=== PATIENT | female | born 1950 | race Caucasian/White ===

== ENCOUNTER 2016-09-11 06:10 | Inpatient (IN) | payer OTHER ==
[2016-08-03 13:41] VITALS: BMI 35.0
--- NOTE | 2016-08-03 14:18 | PAT Medication Instructions ---
Service Date Aug 03, 2016. Current Home Medication List Albuterol Hfa (Ventolin Hfa), 2 PUFFS INH QID PRN for RN Aspirin Enteric Coated (Ecotrin Or Generic *), 81 MG PO Q2D Calcium Carbonate (Tums), 2 TAB PO PRN Calcium/Vitamin D (Caltrate 600 Plus *), 1 TAB PO QAM Diltiazem Hcl Ext Rel (Tiazac), 300 MG PO QAM Fluticasone Propionate (Nasal) (Flonase Allergy Relief), 2 SPRAYS MARTI PRN Furosemide (Lasix), 20 MG PO QAM Gabapentin (Neurontin), 300 MG PO BID Montelukast Sodium (Montelukast Sodium), 1 TAB PO QAM Multivitamin (Multivitamin), 1 TAB PO QAM Potassium Chloride (Micro-K Ext Rel), 10 MEQ PO QAM Tramadol (Ultram), 25-50 MG PO TID Triamcinolone Acet 0.1% (Aristocort 0.1%), 1 DOSE TOP PRN Medication Instructions For Your Scheduled Surgery - Hold the following medications 24 hours prior to surgery: Triamcinolone Acet 0.1% (Aristocort 0.1%), 1 DOSE TOP PRN - Hold the following medications the morning of surgery: Multivitamin (Multivitamin), 1 TAB PO QAM Potassium Chloride (Micro-K Ext Rel), 10 MEQ PO QAM Furosemide (Lasix), 20 MG PO QAM Calcium Carbonate (Tums), 2 TAB PO PRN Calcium/Vitamin D (Caltrate 600 Plus *), 1 TAB PO QAM - Take the following medications the morning of surgery with a sip of water: Tramadol (Ultram), 25-50 MG PO TID (can take up to four hours prior to surgery if needed) Montelukast Sodium (Montelukast Sodium), 1 TAB PO QAM Gabapentin (Neurontin), 300 MG PO BID (if needed) Fluticasone Propionate (Nasal) (Flonase Allergy Relief), 2 SPRAYS MARTI PRN ( if needed) Diltiazem Hcl Ext Rel (Tiazac), 300 MG PO QAM Aspirin Enteric Coated (Ecotrin Or Generic *), 81 MG PO Q2D Albuterol Hfa (Ventolin Hfa), 2 PUFFS INH QID PRN for RN (bring with you to hospital on day of surgery) - Take the following medications as scheduled the night before surgery: Tramadol (Ultram), 25-50 MG PO TID Gabapentin (Neurontin), 300 MG PO BID Fluticasone Propionate (Nasal) (Flonase Allergy Relief), 2 SPRAYS MARTI PRN Calcium Carbonate (Tums), 2 TAB PO PRN Albuterol Hfa (Ventolin Hfa), 2 PUFFS INH QID PRN for RN If you have any questions please call us at [phone] or [phone] ( [place]) or [phone]
[2016-08-03 14:59] LABS: BASO % 0.5 %; BASO ABS # 0.04 K/uL (0-0.2); COMPLETE YES; EOS % 1.3 %; IG% 0.1 %; LYMPH % 35.5 %; LYMPH ABS # 2.82 K/uL (1.2-3.4); MEAN CELL VOLUME 93.1 fL (80-100); MEAN CORPUSCULAR HEMOGLOBIN 31.5 pg (25-34); MEAN CORPUSCULAR HGB CONC 33.8 g/dl (32-36); MEAN PLATELET VOLUME 10.2 fL (7.4-10.4); MONO % 9.4 %; NEUT % 53.2 %; PLATELET COUNT 331 K/uL (130-400); RED BLOOD COUNT 4.19 M/uL (4.2-5.4); WHITE BLOOD COUNT 7.94 K/uL (4.8-10.8)
[2016-08-03 15:11] LABS: PARTIAL THROMBOPLASTIN RATIO 1.1; PROTHROMBIN TIME (PATIENT) 10.3 SECONDS (9.0-12.0)
[2016-08-03 15:32] LABS: BUN/CREATININE RATIO 16.4 (10-20); CALCIUM 9.5 mg/dl (8.5-10.1); CREATININE 0.73 mg/dl (0.60-1.20); POTASSIUM 3.4 mmol/L (3.5-5.1)
--- NOTE | 2016-08-03 15:56 | DIAGNOSTIC IMAGING REPORT ---
CHEST PREADMISSION(PA/LAT) CLINICAL HISTORY: Preoperative chest COMPARISON STUDY: 07/02/2010 FINDINGS: The cardiac and mediastinal contours are normal. There is no evidence of focal pulmonary consolidation. There is no evidence of failure. No pleural effusions are visualized.[ IMPRESSION: No active disease in the chest. Electronically signed by: Edin Peoples M.D. 08/03/2016 3:55 PM
[2016-08-04 06:51] LABS: ESTIMATED AVERAGE GLUCOSE 108 mg/dl; HA1C FLAG Normal (Normal)
--- NOTE | 2016-09-06 22:34 | HISTORY & PHYSICAL EXAMINATION ---
DATE OF ADMISSION: 09/11/2016 PREOPERATIVE HISTORY AND PHYSICAL EXAMINATION SUBJECTIVE CHIEF COMPLAINT: Left knee pain. HISTORY OF PRESENT ILLNESS: The patient is a 65-year-old female who has had left knee pain for some time now. It has been worsening over the past few years. She says that the problem has been getting worse. The pain is described as an achy, sharp feeling. She has tried anti-inflammatories, physical therapy and cortisone and visco with no relief. She would like to proceed with a left total knee arthroplasty. PAST MEDICAL HISTORY: Hypertension. PAST SURGICAL HISTORY: Lower back surgery. SOCIAL HISTORY: She denies alcohol use. She denies smoking or tobacco product use. She denies IV drug use or illegal drug use. 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 FAMILY HISTORY: Mom has a history of heart attacks. MEDICATIONS: Gabapentin 300 mg twice a day, montelukast 10 mg tab daily, Diltazem 300 mg daily, furosemide 20 mg daily, Ventolin p.r.n, Flonase p.r.n., aspirin 81 mg every other day, calcium 60 mg, vitamin D3 at 800 units. ALLERGIES: SULFA DRUGS. REVIEW OF SYSTEMS: She denies fevers, chills, headaches, weight loss, double vision, blurry vision, sore throat, hearing loss, tremors, dizziness, numbness, tingling, tired, thirsty, hot and cold intolerance, abdominal pain, nausea, vomiting, diarrhea, heartburn, chest pain into the legs or feet, frequency going to the bathroom, pain or burning with urination, incontinence, wheezing, cough, shortness of breath, depression, thoughts to harm herself or harm others, nervousness and anxiousness. She is positive for joint pain, stiffness and swelling of the left knee. OBJECTIVE: GENERAL APPEARANCE: The patient is a 65-year-old female sitting in no acute distress. Well dressed, well nourished. She is awake, alert and oriented x3. VITAL SIGNS: She is 5 feet 5 inches, 210 pounds, blood pressure 148/78. HEENT: Extraocular movements are intact, PERRLA, mucosa is moist. No septal deviation. NECK: Supple, no lymphadenopathy, no JVD, no thyromegaly. HEART: Regular rate and rhythm. No murmurs or gallops. LUNGS: Clear to auscultation. No wheezing or rhonchi. ABDOMEN: Soft, nontender, nondistended. Normal bowel sounds, no hepatosplenomegaly. EXTREMITIES: Paying particular attention to the left knee, she is able to actively flex to 90 degrees, actively extend to 0 degrees. She is having lateral knee pain on palpation. NEUROLOGIC: Cranial nerves II-XII are intact. Pulses were compared bilaterally and were equal. IMAGING: X-ray of the left knee shows [id number] lateral compartment with osteophyte formation on the lateral femoral condyle and lateral tibial plateau, subchondral sclerosis in the lateral compartment and moderate osteoarthritic change in the medial and patellofemoral components. IMPRESSION: Severe end stage left knee osteoarthritis. PLAN: The patient is scheduled for a left total knee arthroplasty. She has failed conservative therapies including cortisone and viscosupplementation, anti-inflammatories and physical therapy. She notes that this inhibits her activities of daily living, and she wishes to proceed with a left total knee arthroplasty. Risks and benefits to surgery were discussed and included but not limited to blood clot, nerve damage, blood vessel damage, infection, DVT, failure to relieve all symptoms, revision surgeries and anesthesia risks. The patient understands these risks and wishes to proceed. All questions were answered to her satisfaction. She would like to go to [facility] for her physical rehabilitation after the surgery. BRANDEE
[~2016-09-11] VITALS: Ht 165.1 cm; Wt 95.8 kg
[2016-09-11] VITALS (8 sets, daily range): BP systolic 92–163; BP diastolic 57–87; PULSE 58–89; TEMP 36.4–36.8; O2SAT 93–98; Ht 165.1 cm; Wt 95.8 kg
[~2016-09-11 06:10] MED LIST: ACETAMINOPHEN 500 MG TAB PO SCH; ASPEC81 PO; CALC500C3 PO; CEFAZOLIN 2000 MG/60 ML D5W 60 ML IV SCH; CLTP PO; CeleBREX 200 MG CAP PO SCH; DEXAMETHASONE 4 MG TAB PO SCH; DILT-117 PO; FAMOTIDINE 20 MG TAB PO SCH; FLUT0.15 NAE; FURO-85 PO; GABA-113 PO; GABAPENTIN 300 MG CAP PO SCH; LACTATED RINGER'S 1000ML 1,000 ML IV SCH; LACTATED RINGER'S 1000ML 500 ML IV ONE; LACTATED RINGER'S 1000ML IV SCH; METOCLOPRAMIDE HCL 10 MG TAB PO SCH; MONT1TAB5 PO; MULT-506 PO; POTA10CA28 PO; ROPIVACAINE 5MG/ML 30 ML 150 MG, BUPIVACAINE/EPINEPHR 0.5% MPF 30 ML, KETOROLAC TROMETH... INFIL SCH; TRAM-10 PO; TRIA0.1C20 TOP; VNTHFA/IN INH
--- NOTE | 2016-09-11 06:52 | History & Physical Bridge Note ---
H&P Re-Evaluation Bridge Note: I have examined the patient, reviewed the History & Physical and in the interval since the performance of the History & Physical I have noted the following changes of clinical significance: No changes noted
[2016-09-11] MEDS ORDERED: BUPIVACAINE/EPINEPHRINE 0.25% 1:200,000 30 ML VIAL ONE (07:09)
[2016-09-11] MEDS ORDERED: BUPIVACAINE 0.5 % 5 MG/1 ML PF 10ML VIAL ONE (07:09)
[2016-09-11] MEDS ORDERED: DEXAMETHASONE SOD INJ 4 MG/ML VIAL ONE ×2 (07:10→08:31)
[2016-09-11] MEDS: TRANEXAMIC ACID INJ 1,000 MG in SODIUM CHLORIDE 0.9% 100ML 100 ML IV SCH ×2 (08:20→14:04)
[2016-09-11] MEDS ORDERED: LIDOCAINE HCL 2% 2 ML VIAL (20MG/ML) ONE (08:31)
[2016-09-11] MEDS ORDERED: ONDANSETRON INJ 2 MG/ML 2 ML VIAL ONE (08:31)
[2016-09-11] MEDS ORDERED: PROPOFOL IV EMULSION 10 MG/ML 20 ML VIAL IV ONE (08:31)
[2016-09-11] MEDS ORDERED: MIDAZOLAM HCL 1 MG/ML 2ML VIAL ONE ×2 (08:32→10:42)
[2016-09-11] MEDS ORDERED: FENTANYL CITRATE INJ 50 MCG/1 ML 2 ML VIAL ONE (08:32)
[2016-09-11] MEDS ORDERED: FENTANYL CITRATE INJ 50 MCG/1 ML 2 ML VIAL IV PRN (09:30)
[2016-09-11] MEDS ORDERED: ATROPINE SULFATE 0.1 MG/ML 5ML SYR IV PRN (09:30)
[2016-09-11] MEDS ORDERED: EpHEDrine SULFATE INJ 50 MG/ML AMP IV PRN (09:30)
[2016-09-11] MEDS ORDERED: ONDANSETRON INJ 2 MG/ML 2 ML VIAL IV PRN ×2 (09:30→12:00)
[2016-09-11] MEDS ORDERED: ORTHO JOINT ANESTHETIC ONE (09:30)
[2016-09-11] MEDS ORDERED: BACITRACIN 50000 UNIT VIAL IR ONE (11:07)
[2016-09-11] MEDS ORDERED: POVIDONE-IODINE OP SOLN 30 ML BTL TOP ONE (11:07)
--- NOTE | 2016-09-11 11:12 | [facility] Post Operative Brief Note ---
Immediate Operative Summary Operative Date Sep 11, 2016. Pre-Operative Diagnosis Severe End-Stage Osteoarthritis of Left Knee Post-Operative Diagnosis Same as preoperative Procedure(s) Performed Left Total Knee Arthroplasty, Cemented Surgeon Dr. Torres Dunne Collar Baster Jumpbasting Surgeon(s) Alan Davis PA-C, Jay Espinoza PA-C Estimated Blood Loss 20ml Findings above Specimens A.) Left Knee Bone and Tissue Fragments Drains 2 hemovac Anesthesia spinal, adductor Complication(s) None Disposition Recovery Room / PACU
--- NOTE | 2016-09-11 11:37 | OPERATIVE REPORT ---
DATE OF OPERATION: 09/11/2016 PREOPERATIVE DIAGNOSIS: Left knee degenerative joint disease. POSTOPERATIVE DIAGNOSIS: Same. PROCEDURE: Left total knee arthroplasty. SURGEON: Dr. Dunne. ASSISTANTS: Alan Davis PA-C and Jay Espinoza PA-C, who were necessary for assistance of the procedure with positioning, prepping, draping, retraction and closure. ANESTHESIA: Spinal with adductor canal block. SPECIMEN: Bone and tissue. DRAINS: Two Hemovacs. COMPLICATIONS: None. ESTIMATED BLOOD LOSS: 20 mL. IMPLANTS: Mclain \T\ Nephew Journey version 2, femur 5, tibia 4, poly 11, patella 29 oval. INDICATIONS: The patient is a 65-year-old female with longstanding degenerative joint disease of the left knee. She has failed conservative measures including injection, anti-inflammatories and rehabilitation. X-rays demonstrate she is bone on bone lateral compartment. Failing conservative measures, she wished to proceed with left total knee arthroplasty. Risks, benefits, and alternatives of surgery including but not limited to infection, DVT, pain, stiffness, need for urgent surgery, failure to relieve all symptoms, damage to blood vessels, damage to nerves, risks of anesthesia discussed with the patient and she wished to proceed. DESCRIPTION OF PROCEDURE: The patient was identified, laterality was confirmed and marked. She received a preoperative antibiotic as well as a spinal anesthetic and adductor canal block. A well-padded tourniquet was placed on the thigh and limb was prepped and draped in usual sterile manner with ChloraPrep. Limb was exsanguinated and tourniquet was inflated. I made a longitudinal incision in anterior aspect of the shoulder, sharply incising through the skin, utilizing Bovie electrocautery to achieve hemostasis. I made a medial parapatellar arthrotomy, mobilizing the patella laterally. I excised the anterior horns of medial and lateral meniscus. I then pinned into place the patient matched distal femoral cutting guide, I made my distal femoral resection and then pinned into place the size 5 5-in-1 cutting guide. I made my anterior, posterior and chamfer cuts. I then removed the remaining portion of the menisci and then pinned into place my tibial cutting guide, made my tibial resection, sized for a size 4 tibia and then cut for the post. I placed the trial femur into place, sequentially trialed up to a size 11 poly. We had good range of motion, good soft tissue balancing with an 11. I then prepared the patella with a freehand cut, sized and drilled for a 29 oval. The tibial component was a little bit internally rotated, we removed the trial components, repositioned the tibial component, recut for the post, checked it with an alignment gomez, had much better alignment with some additional external rotation to the tibial component. We retrialed the same poly and patella, continued to have good tracking of the patella and had good soft tissue balance, good stability with the 11 mm poly. All the trial components were removed. Wound was thoroughly irrigated. Deep tissues were anesthetized with Orthomix solution and then the definitive components were cemented with Simplex HV with gentamicin cement. This was Mclain \T\ Nephew Journey version 2, femur 5, tibia 4, poly 11, patella 29 oval. A Betadine soak was performed. Deep drain was placed. Arthrotomy was closed with interrupted #1 Vicryl sutures, subcutaneous tissue with interrupted 2-0 Vicryl suture and skin with alberto. Sterile dressing was applied. All needle and sponge counts were correct at the end of the procedure. The patient was transferred to the PACU in stable condition without apparent complication. I attest to the content of the Intraoperative Record and any orders documented therein. Any exceptio ns are noted below.
[2016-09-11] MEDS ORDERED: ALUMINUM/MAGNESIUM/SIMETH (MAALOX MAX) 30 ML UDC PO PRN (12:00)
[2016-09-11] MEDS ORDERED: MoRPHine SULFATE 2 MG/ML CARP IV PRN (12:00)
[2016-09-11] MEDS ORDERED: MAGNESIUM HYDROXIDE SUSP 30 ML UDC PO PRN (12:00)
[2016-09-11] MEDS ORDERED: CALCIUM CARBONATE 500 MG CHEWABLE PO PRN (12:00)
[2016-09-11] MEDS ORDERED: BISACODYL 10 MG SUPP PR PRN (12:00)
[2016-09-11] MEDS ORDERED: ALBUTEROL HFA 8 GM INHALER INH PRN (12:00)
[2016-09-11] MEDS ORDERED: SOD PHOSPHATE/SOD BIPHOSPHATE ENEMA 132 ML BTL PR PRN (12:00)
[2016-09-11] MEDS ORDERED: FLUTICASONE PROPIONATE NA SPR 16 GM BTL NAE PRN (12:00)
[2016-09-11] MEDS ORDERED: ZOLPIDEM TARTRATE 5 MG TAB PO PRN (12:00)
--- NOTE | 2016-09-11 12:35 | DIAGNOSTIC IMAGING REPORT ---
LEFT KNEE 1 OR 2 VIEWS ROUTINE CLINICAL HISTORY: Degenerative arthritis. Postop study. COMPARISON: None. DISCUSSION: There are postsurgical changes of a total left knee arthroplasty and patellar resurfacing. Overlying skin alberto and surgical drains are evident. There is air in soft tissues consistent with recent surgery. The femoral and tibial components appear well seated. IMPRESSION: Postsurgical changes of a total left knee arthroplasty. Electronically signed by: Edin Peoples M.D. 09/11/2016 12:34 PM Dictated Date/Time: 09/11/2016 12:33 PM
--- NOTE | 2016-09-11 12:37 | Anesthesiology Progress Note ---
Anesthesia Post Op Note Date & Time Sep 11, 2016 at 12:37 Vital Signs Pain Intensity: 0 Vital Signs Past 12 Hours Date Time Temp Pulse Resp B/P Pulse Ox O2 Delivery O2 Flow Rate FiO2 09/11/16 12:28 87 18 118/68 96 09/11/16 12:28 87 18 09/11/16 12:23 85 21 122/85 97 09/11/16 12:23 85 21 09/11/16 12:18 85 18 123/70 96 09/11/16 12:18 84 18 09/11/16 12:13 91 18 122/71 98 09/11/16 12:13 92 18 09/11/16 12:08 88 19 09/11/16 12:08 89 19 114/68 99 09/11/16 12:03 89 18 113/64 100 09/11/16 12:03 37.0 93 16 111/57 96 Mask 10 09/11/16 12:03 89 18 09/11/16 06:45 36.7 89 20 163/87 97 Room Air Notes Mental Status: alert / awake / arousable, participated in evaluation Pt Amnestic to Procedure: Yes Nausea / Vomiting: adequately controlled Pain: adequately controlled Airway Patency, RR, SpO2: stable & adequate BP & HR: stable & adequate Hydration State: stable & adequate Neuraxial Anesthesia: was administered, sensory block is resolving Anesthetic Complications: no major complications apparent
[2016-09-11] MEDS: D5W AND 1/2NSS + 20MEQ KCL 1,000 ML IV SCH (14:04)
[2016-09-11] MEDS: ACETAMINOPHEN 500 MG TAB PO SCH ×2 (14:12→21:46)
[2016-09-11] MEDS: CEFAZOLIN IV 2,000 MG in DEXTROSE 5% 50ML 50 ML IV SCH (18:15)
[2016-09-11] MEDS: FERROUS GLUCONATE 324 MG TAB PO SCH (19:00)
[2016-09-11] MEDS: OXYCODONE HCL IR 5 MG TAB (IMMEDIATE RELEASE) PO PRN (19:01)
[2016-09-11] MEDS: DOCUSATE SODIUM 100 MG CAP PO SCH (20:36)
[2016-09-11] MEDS: ASPIRIN 81 MG ECTAB PO SCH (20:36)
[2016-09-11] MEDS: SENNA 8.6 MG TAB PO SCH (20:36)
[2016-09-11] MEDS: OXYCODONE HCL 10 MG TABCR (OXYCONTIN) PO SCH (20:36)
[2016-09-11] MEDS: GABAPENTIN 300 MG CAP PO SCH (20:36)
[2016-09-12] VITALS (7 sets, daily range): BP systolic 95–156; BP diastolic 61–94; PULSE 50–75; TEMP 36.6–36.9; O2SAT 96–100
[2016-09-12] MEDS: D5W AND 1/2NSS + 20MEQ KCL 1,000 ML IV SCH ×2 (00:13→08:38)
[2016-09-12] MEDS: OXYCODONE HCL IR 5 MG TAB (IMMEDIATE RELEASE) PO PRN ×2 (00:17→05:23)
[2016-09-12] MEDS: CEFAZOLIN IV 2,000 MG in DEXTROSE 5% 50ML 50 ML IV SCH (01:40)
[2016-09-12] MEDS: ACETAMINOPHEN 500 MG TAB PO SCH ×3 (05:20→21:40)
[2016-09-12 06:28] LABS: HEMATOCRIT 34.9 % (37-47); MEAN CELL VOLUME 93.1 fL (80-100); MEAN CORPUSCULAR HEMOGLOBIN 31.7 pg (25-34); MEAN CORPUSCULAR HGB CONC 34.1 g/dl (32-36); MEAN PLATELET VOLUME 10.7 fL (7.4-10.4); PLATELET COUNT 311 K/uL (130-400); RED BLOOD COUNT 3.75 M/uL (4.2-5.4); WHITE BLOOD COUNT 21.22 K/uL (4.8-10.8)
[2016-09-12 06:57] LABS: BUN/CREATININE RATIO 19.5 (10-20); CALCIUM 8.7 mg/dl (8.5-10.1); CREATININE 0.73 mg/dl (0.60-1.20); POTASSIUM 4.2 mmol/L (3.5-5.1)
[2016-09-12] MEDS: CALCIUM 600MG + VIT D 400 IU TAB PO SCH (08:28)
[2016-09-12] MEDS: ASPIRIN 81 MG ECTAB PO SCH ×2 (08:28→21:40)
[2016-09-12] MEDS: DILTIAZEM HCL 300 MG CAPCR PO SCH (08:28)
[2016-09-12] MEDS: DOCUSATE SODIUM 100 MG CAP PO SCH ×2 (08:28→21:40)
[2016-09-12] MEDS: POTASSIUM CHLORIDE 10 MEQ TABCR PO SCH (08:29)
[2016-09-12] MEDS: MULTIVITAMIN TAB PO SCH (08:29)
[2016-09-12] MEDS: FUROSEMIDE 20 MG TAB PO SCH (08:29)
[2016-09-12] MEDS: MONTELUKAST SOD 10 MG TAB PO SCH (08:30)
[2016-09-12] MEDS: PANTOprazole SOD 40 MG TAB PO SCH (08:30)
[2016-09-12] MEDS: GABAPENTIN 300 MG CAP PO SCH ×2 (08:30→21:41)
[2016-09-12] MEDS: OXYCODONE HCL 10 MG TABCR (OXYCONTIN) PO SCH ×2 (08:38→21:45)
[2016-09-12] MEDS ORDERED: MULTIVITAMIN TAB PO SCH (09:00)
[2016-09-12] MEDS: FERROUS GLUCONATE 324 MG TAB PO SCH ×3 (09:24→17:50)
--- NOTE | 2016-09-12 13:06 | Orthopedic Progress Note ---
Orthopedic Progress Note Date of Service Sep 12, 2016. Subjective Post OP Day: 1 Reports: feeling well, pain controlled w PO medications, Denies: SOB, calf pain , chest pain, light headedness, nausea / vomiting Objective calves soft nontender, N/V intact, capillary refill less than 2 sec., dressing C /D/I, A&O x3, toes mobile, hemovac drainage Date Time Temp Pulse Resp B/P Pulse Ox O2 Delivery O2 Flow Rate FiO2 09/12/16 11:56 36.6 70 16 156/94 100 Room Air 09/12/16 09:34 97 Room Air 09/12/16 09:30 75 98 09/12/16 08:13 Room Air 09/12/16 08:00 36.6 60 18 142/80 97 Room Air 09/12/16 02:55 36.7 50 16 95/61 96 Room Air 09/12/16 00:15 Room Air 09/11/16 23:15 36.8 58 18 92/57 93 Room Air 09/11/16 19:54 36.4 74 18 137/85 96 Room Air 09/11/16 15:55 36.4 82 16 96/61 98 Nasal Cannula 2.0 09/11/16 15:09 36.5 73 16 115/68 97 Nasal Cannula 2.0 09/11/16 15:00 Nasal Cannula 2.0 09/11/16 14:00 36.7 85 16 135/77 96 Nasal Cannula 2.0 09/11/16 14:00 83 16 124/72 98 2.0 09/11/16 13:30 36.7 76 16 123/80 98 Nasal Cannula 2.0 Laboratory Results 24 Hours: Test 09/12/16 05:29 Hematocrit 34.9 % Hemoglobin 11.9 g/dL Assessment & Plan Assessment: POD#1 Left TKA Inhouse Planning Pain Management: Oxycontin, PO Tylenol, Oxy IR DVT Prophylaxis: TEDs, SCDs, ASA Discharge Planning Discharge Planning: rehab hospital Discharge Planning Notes: Plan for discharge to [facility] when approved.
[2016-09-12] MEDS: SENNA 8.6 MG TAB PO SCH (21:41)
[2016-09-13] MEDS: ACETAMINOPHEN 500 MG TAB PO SCH ×3 (05:25→21:39)
[2016-09-13] MEDS: OXYCODONE HCL IR 5 MG TAB (IMMEDIATE RELEASE) PO PRN ×2 (05:57→12:34)
[2016-09-13 06:02] VITALS: BP 129/81; PULSE 72; TEMP 36.8; O2SAT 98
--- NOTE | 2016-09-13 08:32 | Orthopedic Progress Note ---
Orthopedic Progress Note Date of Service Sep 13, 2016. Subjective Post OP Day: 2 Reports: feeling well, pain controlled w PO medications, Denies: SOB, calf pain , chest pain, light headedness, nausea / vomiting Objective calves soft nontender, N/V intact, capillary refill less than 2 sec., dressing C /D/I, A&O x3, toes mobile Date Time Temp Pulse Resp B/P Pulse Ox O2 Delivery O2 Flow Rate FiO2 09/13/16 08:05 Room Air 09/13/16 06:02 36.8 72 17 129/81 98 Room Air 09/12/16 22:58 36.9 63 18 110/71 98 Room Air 09/12/16 20:05 Room Air 09/12/16 16:10 Room Air 09/12/16 15:34 36.6 70 16 120/72 98 Room Air 09/12/16 11:56 36.6 70 16 156/94 100 Room Air 09/12/16 09:34 97 Room Air 09/12/16 09:30 75 98 Assessment & Plan Assessment: POD#2 Left TKA Inhouse Planning Pain Management: Oxycontin, PO Tylenol, Oxy IR DVT Prophylaxis: TEDs, SCDs, ASA Discharge Planning Discharge Planning: rehab hospital Discharge Planning Notes: Plan for discharge to [facility] when approved or [facility]. Most likely wednesday
[2016-09-13] MEDS: FERROUS GLUCONATE 324 MG TAB PO SCH ×3 (08:33→17:54)
[2016-09-13] MEDS: DILTIAZEM HCL 300 MG CAPCR PO SCH (08:34)
[2016-09-13] MEDS: DOCUSATE SODIUM 100 MG CAP PO SCH ×2 (08:34→20:48)
[2016-09-13] MEDS: CALCIUM 600MG + VIT D 400 IU TAB PO SCH (08:34)
[2016-09-13] MEDS: MONTELUKAST SOD 10 MG TAB PO SCH (08:35)
[2016-09-13] MEDS: FUROSEMIDE 20 MG TAB PO SCH (08:35)
[2016-09-13] MEDS: ASPIRIN 81 MG ECTAB PO SCH ×2 (08:35→20:48)
[2016-09-13] MEDS: OXYCODONE HCL 10 MG TABCR (OXYCONTIN) PO SCH ×2 (08:35→20:48)
[2016-09-13] MEDS: MULTIVITAMIN TAB PO SCH (08:35)
[2016-09-13] MEDS: GABAPENTIN 300 MG CAP PO SCH ×2 (08:35→20:48)
[2016-09-13] MEDS: PANTOprazole SOD 40 MG TAB PO SCH (08:35)
[2016-09-13] MEDS: POTASSIUM CHLORIDE 10 MEQ TABCR PO SCH (08:35)
[2016-09-13 15:01] VITALS: BP 108/68; PULSE 75; TEMP 36.7; O2SAT 99
[2016-09-13] MEDS: SENNA 8.6 MG TAB PO SCH (20:48)
[2016-09-13 23:30] VITALS: BP 125/70; PULSE 82; TEMP 37.1; O2SAT 96
[2016-09-14] MEDS: ACETAMINOPHEN 500 MG TAB PO SCH ×3 (05:47→21:56)
[2016-09-14 06:41] VITALS: BP 127/77; PULSE 81; TEMP 37; O2SAT 99
[2016-09-14] MEDS: OXYCODONE HCL IR 5 MG TAB (IMMEDIATE RELEASE) PO PRN ×2 (06:54→18:39)
[2016-09-14] MEDS: ASPIRIN 81 MG ECTAB PO SCH ×2 (07:31→20:43)
[2016-09-14] MEDS: DOCUSATE SODIUM 100 MG CAP PO SCH ×2 (07:31→20:43)
[2016-09-14] MEDS: DILTIAZEM HCL 300 MG CAPCR PO SCH (07:31)
[2016-09-14] MEDS: CALCIUM 600MG + VIT D 400 IU TAB PO SCH (07:31)
[2016-09-14] MEDS: FERROUS GLUCONATE 324 MG TAB PO SCH ×3 (07:31→17:47)
[2016-09-14] MEDS: PANTOprazole SOD 40 MG TAB PO SCH (07:32)
[2016-09-14] MEDS: POTASSIUM CHLORIDE 10 MEQ TABCR PO SCH (07:32)
[2016-09-14] MEDS: GABAPENTIN 300 MG CAP PO SCH ×2 (07:32→20:43)
[2016-09-14] MEDS: MONTELUKAST SOD 10 MG TAB PO SCH (07:32)
[2016-09-14] MEDS: MULTIVITAMIN TAB PO SCH (07:32)
[2016-09-14] MEDS: FUROSEMIDE 20 MG TAB PO SCH (07:32)
--- NOTE | 2016-09-14 08:19 | Anesthesiology Progress Note ---
Anesthesia Post Op Note Date & Time Sep 14, 2016 at 08:19 Vital Signs Pain Intensity: 4.0 Vital Signs Past 12 Hours Date Time Temp Pulse Resp B/P Pulse Ox O2 Delivery O2 Flow Rate FiO2 09/14/16 08:03 Room Air 09/14/16 06:41 37.0 81 18 127/77 99 Room Air 09/13/16 23:30 37.1 82 18 125/70 96 Room Air 09/13/16 23:20 Room Air Notes Mental Status: alert / awake / arousable, participated in evaluation Pt Amnestic to Procedure: Yes Nausea / Vomiting: adequately controlled Pain: adequately controlled Airway Patency, RR, SpO2: stable & adequate BP & HR: stable & adequate Hydration State: stable & adequate Neuraxial Anesthesia: was administered, sensory block resolved Anesthetic Complications: no major complications apparent
[2016-09-14] MEDS: OXYCODONE HCL 10 MG TABCR (OXYCONTIN) PO SCH ×2 (08:30→20:43)
--- NOTE | 2016-09-14 10:10 | Orthopedic Progress Note ---
Orthopedic Progress Note Date of Service Sep 14, 2016. Subjective Post OP Day: 3 Reports: feeling well, Denies: SOB, chest pain, complaints, light headedness, nausea / vomiting Objective calves soft nontender, N/V intact, dressing C/D/I, incision C/D/I, A&O x3, toes mobile Date Time Temp Pulse Resp B/P Pulse Ox O2 Delivery O2 Flow Rate FiO2 09/14/16 08:03 Room Air 09/14/16 06:41 37.0 81 18 127/77 99 Room Air 09/13/16 23:30 37.1 82 18 125/70 96 Room Air 09/13/16 23:20 Room Air 09/13/16 15:40 Room Air 09/13/16 15:01 36.7 75 16 108/68 99 Room Air Assessment & Plan Assessment: POD#3 Left TKA Plan: Patient will be going to [facility] once approved by insurance, possibly Wednesday09/14/16 Inhouse Planning Pain Management: Oxycontin, PO Tylenol, Oxy IR DVT Prophylaxis: TEDs, SCDs, ASA Discharge Planning Discharge Planning: rehab hospital Discharge Planning Notes: Plan for discharge to [facility] when approved or [facility]. Most likely wednesday
[2016-09-14] MEDS ORDERED: ACET-1138 PO (10:39)
[2016-09-14] MEDS ORDERED: RXC5 PO (10:39)
[2016-09-14] MEDS ORDERED: OXYSR10 PO (10:39)
--- NOTE | 2016-09-14 10:44 | Discharge Instructions ---
Discharge Instructions Admission Reason for Admission: Left Knee Osteoarthritis Discharge Discharge Diagnosis / Problem: S/P Left Knee TKA Discharge Goals Goal(s): Decrease discomfort, Improve function Activity Recommendations Activity Level: OOB In Chair Therapies: Physical Therapy, Occupational Therapy Exercise/Sports Limitations: gradually increase as tolerated Shower/Bathe: keep incision dry . Additional Information Patient informed of condition: Yes Advance Directives: No DNR: No Level of Care: Skilled Communicable Disease: No Prognosis: Stable Instructions / Follow-Up Instructions / Follow-Up ACTIVITY RECOMMENDATIONS: SELF CARE INSTRUCTIONS AFTER TOTAL KNEE REPLACEMENT A. You may need to continue a physical therapy program after discharge from the hospital. There are several options available to you. Your doctor will assist you in selecting the best one for you. 1. An out-patient facility 2 to 3 times a week for therapy or home therapy. 2. Continue working on all exercises taught to you in the hospital. Your goals should be to increase bending of your knee to 90 degrees and beyond and to fully straighten your knee. B. You may progress at your own pace from walking with a walker or crutches to a cane; then to no assistive devices. C. Make walking a part of your daily routine. Be up as much as comfortable with rest periods throughout the day. Rest with leg elevation is very important. Use the ice wrap frequently for the first 3-4 weeks. D. There are no restrictions on activities. You may ride in a car, shop, participate in estate planning paralegal and all social activities. E. Wear the long elastic stockings (FERNANDEZ hose) 20 hours a day for 2 weeks after surgery. They can be removed several times a day for laundering and for a bath. F. You may shower, no tub baths until cleared by your doctor. SPECIAL CARE INSTRUCTIONS: VERY IMPORTANT TO READ AND REVIEW A. There are a few signs you need to watch for after you are home. Call [facility] if you notice any of the followin. Increased severe knee pain. Some pain is expected especially when you exercise. 2. Increased swelling in your leg or knee; pain or swelling of the calf muscle in either lower leg. 3. Any fluid drainage from the incision. 4. Shortness of breath or chest pain. B. Please call [facility] at if you have any concerns or questions about your operation or recovery. The doctor or his nurse will return your call promptly. C. You must take antibiotics before dental work, bladder, bowel or other surgery. Your doctor will provide you with a permanent care to carry describing this precaution. IMPORTANT: * REMEMBER TO TAKE ASPIRIN, 81 MG, TWICE DAILY FOR 4 WEEKS UNLESS OTHERWISE DIRECTED. THIS IS YOUR BLOOD THINNER. * HIGH RISK PATIENTS MAY BE PRESCRIBED A STRONGER BLOOD THINNER. THIS WILL BE PROVIDED AT DISCHARGE. * CALL IF INCREASED PAIN, REDNESS, DRAINAGE OR FEVER GREATER THAT 101. * WEAR FERNANDEZ HOSE 20 HOURS PER DAY FOR 2 WEEKS. * YOU MAY HAVE A LARGE BAND-AID LIKE DRESSING (SILVERON). THIS WILL REMAIN ON YOUR INCISION FOR 7 DAYS, THEN CAN BE REMOVED. IF INCISION IS LEAKING THROUGH DRESSING, CALL THE OFFICE . FOLLOW UP VISIT: If appointment is not already scheduled: Please call [facility] to make a follow-up appointment for 2 weeks after your surgery at . Current Hospital Diet Patient's current hospital diet: Regular Diet Discharge Diet Recommended Diet: Regular Diet Procedures Procedures Performed: Left Total Knee Arthroplasty, Cemented Pending Studies Studies pending at discharge: no Laboratory Results Hemoglobin A1c Test 08/03/16 12:41 Range/Units Estimated Average Glucose 108 mg/dl Hemoglobin A1c 5.4 4.5-5.6 % Medical Emergencies . Who to Call and When: Medical Emergencies: If at any time you feel your situation is an emergency, please call 911 immediately. . Non-Emergent Contact Non-Emergency issues call your: Surgeon Call Non-Emergent contact if: temperature is above 101, your pain is worsening , wound has increased drainage, wound has increased redness . . "Provider Documentation" section prepared by Alan Davis. Core Measure Problem Core Measures: None
[2016-09-14] MEDS ORDERED: ASPEC81 PO (10:55)
[2016-09-14] MEDS ORDERED: SNK PO (10:57)
[2016-09-14 11:07] VITALS: BP 127/77; PULSE 81; TEMP 37; O2SAT 99
[2016-09-14 15:06] VITALS: BP 127/73; PULSE 91; TEMP 36.9; O2SAT 95
[2016-09-14] MEDS: SENNA 8.6 MG TAB PO SCH (20:44)
[2016-09-14 22:58] VITALS: BP 110/72; PULSE 76; TEMP 37.1; O2SAT 93
[2016-09-15] MEDS: ACETAMINOPHEN 500 MG TAB PO SCH ×2 (05:48→14:30)
[2016-09-15 07:08] VITALS: BP 141/83; PULSE 84; TEMP 37; O2SAT 100
[2016-09-15] MEDS: CALCIUM 600MG + VIT D 400 IU TAB PO SCH (08:31)
[2016-09-15] MEDS: FERROUS GLUCONATE 324 MG TAB PO SCH ×2 (08:31→13:00)
[2016-09-15] MEDS: MULTIVITAMIN TAB PO SCH (08:32)
[2016-09-15] MEDS: DOCUSATE SODIUM 100 MG CAP PO SCH (08:32)
[2016-09-15] MEDS: ASPIRIN 81 MG ECTAB PO SCH (08:32)
[2016-09-15] MEDS: OXYCODONE HCL 10 MG TABCR (OXYCONTIN) PO SCH (08:32)
[2016-09-15] MEDS: FUROSEMIDE 20 MG TAB PO SCH (08:32)
[2016-09-15] MEDS: POTASSIUM CHLORIDE 10 MEQ TABCR PO SCH (08:32)
[2016-09-15] MEDS: DILTIAZEM HCL 300 MG CAPCR PO SCH (08:32)
[2016-09-15] MEDS: GABAPENTIN 300 MG CAP PO SCH (08:32)
[2016-09-15] MEDS: MONTELUKAST SOD 10 MG TAB PO SCH (08:33)
[2016-09-15] MEDS: PANTOprazole SOD 40 MG TAB PO SCH (08:33)
--- NOTE | 2016-09-15 11:25 | Orthopedic Progress Note ---
Orthopedic Progress Note Date of Service Sep 15, 2016. Subjective Post OP Day: 4 Reports: feeling well, pain controlled w PO medications, Denies: SOB, calf pain , chest pain, complaints, light headedness, nausea / vomiting Additional Notes: [facility] can take patient today. Objective calves soft nontender, N/V intact, capillary refill less than 2 sec., dressing C /D/I, A&O x3, toes mobile silverlon in tact. Date Time Temp Pulse Resp B/P Pulse Ox O2 Delivery O2 Flow Rate FiO2 09/15/16 08:06 Room Air 09/15/16 07:08 37.0 84 16 141/83 100 Room Air 09/15/16 00:00 Room Air 09/14/16 22:58 37.1 76 18 110/72 93 Room Air 09/14/16 16:10 Room Air 09/14/16 15:06 36.9 91 16 127/73 95 Room Air Assessment & Plan Assessment: POD#4 Left TKA Plan: PT/ OT DVT proph- ASA To [facility] today. Inhouse Planning Pain Management: Oxycontin, PO Tylenol, Oxy IR DVT Prophylaxis: TEDs, SCDs, ASA Discharge Planning [facility] Discharge Planning Notes: Plan for discharge to [facility] when approved or [facility]. Most likely wednesday
[2016-09-15] MEDS: OXYCODONE HCL IR 5 MG TAB (IMMEDIATE RELEASE) PO PRN ×2 (13:01→14:30)
--- NOTE | 2016-09-18 11:50 | DISCHARGE SUMMARY ---
ADMISSION DIAGNOSIS: Left end stage osteoarthritis of the left knee. DISCHARGE DIAGNOSIS: Status post total knee arthroplasty. CONSULTS: None. PROCEDURES: On 09/11/2016 the patient underwent left total knee arthroplasty. HISTORY OF PRESENT ILLNESS: The patient is a 65-year-old female who has had left knee for some time now that has been worsening over the past few years. She says that the problem has been getting progressively worse and the pain is described as achy and sharp. She has tried anti-inflammatories, physical therapy, cortisone and viscosupplementation with no relief. She wished to proceed with a left total knee arthroplasty. HOSPITAL COURSE: Postop day #1 the patient was feeling well, pain was well controlled with p.o. medications. She denies shortness of breath, chest pain, lightheadedness, nausea or vomiting. Her plan for discharge was to go to [facility] when approved. Postop day 2 the patient was feeling well, pain was controlled with p.o. meds. No shortness of breath, lightheadedness, nausea or vomiting. She was to be discharged to [facility] most likely on Wednesday. Postop day 3 she was feeling well, pain was well controlled. No lightheadedness, no nausea, no vomiting. The patient was still awaiting approval for [facility]. Postop day 4 the patient ended up getting approval for [facility]. DISCHARGE CONDITION: Stable. DISPOSITION: correction facility [facility]. MEDICATIONS: Acetaminophen 1000 mg every 8 hours for 30 days, aspirin 81 mg twice a day, OxyContin 10 mg every 12 hours for 10 days, oxycodone 5-10 mg by mouth every 4 hours as needed for pain, Senna 17.2 mg by mouth at bedtime, hold for loose stools, Ventolin 2 puffs as needed, Diltiazem 300 mg by mouth daily, furosemide 20 mg by mouth daily, gabapentin 300 mg by mouth twice daily, montelukast 1 tab by mouth daily in the morning. INSTRUCTIONS: She is to be up out of bed in a chair. She will begin physical therapy and occupational therapy. She is to keep her incision dry. She is allowed to use ice over the incision site. She is to use elastic stockings 20 hours a day for 2 week after the surgery. She has a regular diet. She is to call [facility] if she is having increased severe knee pain, swelling, or fluid drainage from the incision, shortness of breath or chest pain. She will follow up with Dr. Dunne or his PA 2 weeks after the surgery. BRANDEE
== END 2016-09-15 16:19 | DRG 470 ==
LOC: ENRESERVDT → ENRESERVTM → C.ACU 06:10 → C.3E 06:34
PROVIDERS: ADMIT Orthopaedic Surgery; ATTEND Orthopaedic Surgery
PROC: 0SRD0J9 Replacement of Left Knee Joint with Synthetic Substitute, Cemented, Open Approach (ICD-10-PCS; principal; 2016-09-11 09:00)
DX: M17.12 Unilateral primary osteoarthritis, left knee (principal); I10 Essential (primary) hypertension; J45.909 Unspecified asthma, uncomplicated; K21.9 Gastro-esophageal reflux disease without esophagitis; E66.9 Obesity, unspecified; Z68.35 Body mass index [BMI] 35.0-35.9, adult; Z98.1 Arthrodesis status; Z79.82 Long term (current) use of aspirin; Z79.891 Long term (current) use of opiate analgesic; Z79.899 Other long term (current) drug therapy

== ENCOUNTER → 2016-09-22 | Outpatient (CLI) | payer OTHER ==
[~2016-09-22] MED LIST changes: +ACET-1138 PO; -ACETAMINOPHEN 500 MG TAB PO SCH; -CEFAZOLIN 2000 MG/60 ML D5W 60 ML IV SCH; -CeleBREX 200 MG CAP PO SCH; -DEXAMETHASONE 4 MG TAB PO SCH; -FAMOTIDINE 20 MG TAB PO SCH; -GABAPENTIN 300 MG CAP PO SCH; -LACTATED RINGER'S 1000ML 1,000 ML IV SCH; -LACTATED RINGER'S 1000ML 500 ML IV ONE; -LACTATED RINGER'S 1000ML IV SCH; -METOCLOPRAMIDE HCL 10 MG TAB PO SCH; +OXYSR10 PO; -ROPIVACAINE 5MG/ML 30 ML 150 MG, BUPIVACAINE/EPINEPHR 0.5% MPF 30 ML, KETOROLAC TROMETH... INFIL SCH; +RXC5 PO; +SNK PO; -TRAM-10 PO
[2016-09-22 08:36] LABS: MEAN CELL VOLUME 94.2 fL (80-100); MEAN CORPUSCULAR HEMOGLOBIN 31.8 pg (25-34); MEAN CORPUSCULAR HGB CONC 33.8 g/dl (32-36); MEAN PLATELET VOLUME 9.5 fL (7.4-10.4); PLATELET COUNT 450 K/uL (130-400); RED BLOOD COUNT 3.08 M/uL (4.2-5.4); WHITE BLOOD COUNT 9.01 K/uL (4.8-10.8)
== END ==
LOC: C.LABCC 08:14
PROVIDERS: ATTEND Internal Medicine
DX: Z47.1 Aftercare following joint replacement surgery (principal); Z96.659 Presence of unspecified artificial knee joint